=== PATIENT | female | born 1970 | race Two or more races ===

== ENCOUNTER 2018-11-10 20:16 | Emergency (ER) | payer SELFPAY ==
[~2018-11-10] VITALS: Ht 165.1 cm; Wt 70.3 kg
[2018-11-10 20:59] VITALS: BP 143/89
--- NOTE | 2018-11-10 21:00 | NUR ---
C/C L LOWER BACK AND LOWER ABD PAIN, AND WEAKNESS .
[2018-11-10] MEDS ORDERED: CYCLOBENZAPRINE 10 MG TABLET PO ONE (21:30)
[2018-11-10] MEDS ORDERED: ONDANSETRON HCL/PF - ER 4 MG/2 ML VIAL IV ONE (21:30)
[2018-11-10] MEDS ORDERED: MORPHINE SULFATE INJ 10 MG/ML DISP.SYRIN IV ONE (21:30)
--- NOTE | 2018-11-10 21:41 | NUR ---
Patient/ do not wish to proceed with medical care recommended by Dr. Brown. Patient given information related to possible complications, up to and including , which could occur as a result of leaving the hospital at this time. Patient/ verbalize understanding of risks involved due to leaving against medical advice. Patient has signed AMA form. patient and family made aware of diagnostic tests and CT and medications ordered by MD. pt still willing the hospital . MD made aware.
== END 2018-11-10 21:50 | disposition left against medical advice (07) ==
LOC: ER 20:28
DX: M54.5 Low back pain (principal); R56.9 Unspecified convulsions; Z86.73 Personal history of transient ischemic attack (TIA), and cerebral infarction without residual deficits; Z88.6 Allergy status to analgesic agent; Z88.5 Allergy status to narcotic agent
CPT/HCPCS: J2405